=== PATIENT | male | born 1975 | race Caucasian/White ===

== ENCOUNTER 2018-02-18 15:40 | Emergency (ER) | payer BC, OTHER ==
[2018-02-18] MEDS ORDERED: Ibuprofen TAB* 800 MG PO ONE (15:52)
--- NOTE | 2018-02-18 15:53 | ED ---
Lower Extremity - HPI Summary HPI Summary: 42-year-old male presents with right foot injury today. He states he dropped a min hammer on his right foot. There are small abrasions noted to right 2nd toe near nail. He believes his tetanus is up-to-date. He denies any numbness or tingling. He was able to ambulate on his foot. He denies any previous injury to the area. He states pain is 5 out of 10. Pain is worse with ambulation. pain is greatest over 1-2 metatarsal. He was not wearing steel toe boots. - History of Current Complaint Chief Complaint: EDExtremityLower Stated Complaint: RT FOOT INJURY Time Seen by Provider: 02/18/18 15:46 Pain Intensity: 4 - Allergies/Home Medications Allergies/Adverse Reactions: Allergies Allergy/AdvReac Type Severity Reaction Status Date / Time No Known Allergies Allergy Verified 02/18/18 15:43 PMH/Surg Hx/FS Hx/Imm Hx Endocrine/Hematology History: Denies: Hx Anticoagulant Therapy Cardiovascular History: Denies: Hx Myocardial Infarction Infectious Disease History: No Infectious Disease History: Denies: Traveled Outside the [place] in Last 30 Days - Family History Known Family History: Positive: Hypertension Review of Systems Negative: Fever Negative: Chest Pain Negative: Shortness Of Breath Positive: Myalgia - right foot injury All Other Systems Reviewed And Are Negative: Yes Physical Exam Triage Information Reviewed: Yes Vital Signs On Initial Exam: Initial Vitals Temp Pulse Resp BP Pulse Ox 99.5 F 66 16 124/80 96 02/18/18 15:43 02/18/18 15:43 02/18/18 15:43 02/18/18 15:43 02/18/18 15:43 Vital Signs Reviewed: Yes Appearance: Positive: Well-Appearing Skin: Positive: Warm, Dry Head/Face: Positive: Normal Head/Face Inspection Eyes: Positive: Normal, Conjunctiva Clear Respiratory/Lung Sounds: Positive: Clear to Auscultation, Breath Sounds Present Cardiovascular: Positive: Normal, RRR Musculoskeletal: Positive: Strength/ROM Intact - right foot, Other - abrasion to second toe, good pulses, capillary refill<2 secs, tenderness over 1-2 metatarsal Neurological: Positive: Normal Psychiatric: Positive: Normal Diagnostics - Vital Signs Vital Signs Temp Pulse Resp BP Pulse Ox 02/18/18 15:43 99.5 F 66 16 124/80 96 - Laboratory Lab Statement: Any lab studies that have been ordered have been reviewed, and results considered in the medical decision making process. - Radiology foot Xray Interpretation: No Acute Changes Radiology Interpretation Completed By: Radiologist Lower Extremity Course/Dx - Course Course Of Treatment: 42-year-old male presents with right foot injury today. He states he dropped a min hammer on his right foot. There are small abrasions noted to right 2nd toe near nail. He believes his tetanus is up-to- date. He denies any numbness or tingling. He was able to ambulate on his foot. He denies any previous injury to the area. He states pain is 5 out of 10. Pain is worse with ambulation. pain is greatest over 1-2 metatarsal. He was not wearing steel toe boots. on exam has abrasion to right 2nd toe, tenderness over 1-2nd metarsal. neurovascular intact. xray normal. cleaned abrasion and place band aide. will treat with RICE. patient understand and agrees with plan. - Diagnoses Differential Diagnosis/HQI/PQRI: Positive: Fracture (Closed), Sprain, Strain Provider Diagnoses: Contusion of right foot Discharge - Sign-Out/Discharge Documenting (check all that apply): Discharge/Admit/Transfer - Discharge Plan Condition: Good Disposition: HOME Patient Education Materials: Foot Contusion (ED) Referrals: Margarita Lantigua NP [Nurse Practitioner] - Additional Instructions: Take Tylenol or ibuprofen every 6 hours as needed for pain Apply ice, rest, elevate Follow up with primary care physician within 5 days Return to ED if develop any new or worsening symptoms - Billing Disposition and Condition Condition: GOOD Disposition: HOME
--- NOTE | 2018-02-18 16:16 | RAD ---
INDICATION: Right foot injury COMPARISON: None TECHNIQUE: AP, lateral, and oblique views were obtained. FINDINGS: The bony structures, joint spaces, and soft tissues are normal for age. IMPRESSION: NEGATIVE EXAMINATION.
[2018-02-18 17:00] VITALS: BP 121/66
== END 2018-02-18 16:57 | disposition home or self-care (01) ==
LOC: ED 15:40
DX: S90.31XA Contusion of right foot, initial encounter (principal); W22.8XXA Striking against or struck by other objects, initial encounter; Y92.9 Unspecified place or not applicable
CPT/HCPCS: 99281; A9270-GY

== ENCOUNTER 2018-04-30 14:39 | Emergency (ER) | payer OTHER ==
[2018-04-30 17:48] LABS: ABS Basophils 0 10^3/ul (0-0.2); ABS Eosinophils 0.1 10^3/ul (0-0.6); ABS Monocytes 0.5 10^3/ul (0-0.8); ABS Neutrophils 5.1 10^3/ul (1.5-7.7); ABS Nucleated RBC 0 10^3/ul; Eosinophil % 1.2 % (0-6); Hematocrit 45 % (42-52); Hemoglobin 15.9 g/dl (14.0-18.0); Lymphocyte % 15.6 % (25-47); Mean Corpuscular HGB Conc 36 g/dl (31-36); Mean Corpuscular Hemoglobin 32 pg (27-31); Mean Corpuscular Volume 89 fL (80-94); Mean Platelet Volume 7.3 um3 (7.4-10.4); Nucleated Red Blood Cells % 0; Platelet Count 180 10^3/ul (150-450); Red Blood Count 5.04 10^6/ul (4.00-5.40); Red Cell Distribution Width 14 % (10.5-15); White Blood Count 6.7 10^3/ul (3.5-10.8)
--- NOTE | 2018-04-30 17:51 | RAD ---
INDICATION: Chest pressure, hypertension. COMPARISON: Comparison is made with prior chest x-ray study from August 30, 2011. TECHNIQUE: Dual-energy PA and lateral views of the chest were obtained. FINDINGS: The heart is within normal limits in size. Mediastinal and hilar contours appear within normal limits. The lungs are clear. No pleural effusion is present. IMPRESSION: NO EVIDENCE FOR ACTIVE CARDIOPULMONARY DISEASE.
[2018-04-30 17:57] LABS: Urine Appearance Clear; Urine Blood Negative (Negative); Urine Color Straw; Urine Ketones Negative (Negative); Urine Protein Negative (Negative); Urine Specific Gravity 1.008 (1.010-1.030); Urine Urobilinogen Negative (Negative)
[2018-04-30 18:09] LABS: EGFR Non-African American 77.1 (>60)
[2018-04-30] MEDS ORDERED: Hydrochlorothiazide TAB* 25 MG PO ONE (18:12)
--- NOTE | 2018-04-30 18:16 | ED ---
Hypertension - HPI Summary HPI Summary: 42 male presents with high blood pressure for past week. He admits to occasional chest pain. He states it is sharp. It is located in one area on left side of chest. He states that it radiates into his left arm and neck. He denies any recent illness. No cough. He denies any shortness breath. He was occasional palpitations. He states that he has been having a lack of sleep. He states that he is on medications for anxiety and depression. He states that for the past week he's measuring blood pressure has been in the 140s. He is not on patient's for blood pressure. He denies any headache. He states that he feels that his blood pressure as high. He has family history of high blood pressure and cardiac disease. - History of Current Complaint Chief Complaint: EDHypertension Stated Complaint: HIGH BP Time Seen by Provider: 04/30/18 17:54 - Allergies/Home Medications Allergies/Adverse Reactions: Allergies Allergy/AdvReac Type Severity Reaction Status Date / Time No Known Allergies Allergy Verified 04/30/18 18:29 Home Medications: Home Medications Zolpidem TAB* [Ambien TAB*] 10 mg PO BEDTIME PRN 04/30/18 [History Confirmed ] traZODone TAB* [Desyrel TAB*] 50 mg PO BEDTIME PRN 04/30/18 [History Confirmed 04/30/18] PMH/Surg Hx/FS Hx/Imm Hx Endocrine/Hematology History: Denies: Hx Anticoagulant Therapy Cardiovascular History: Denies: Hx Myocardial Infarction Infectious Disease History: No Infectious Disease History: Denies: Traveled Outside the [place] in Last 30 Days - Family History Known Family History: Positive: Cardiac Disease, Hypertension - Social History Alcohol Use: Occasionally Substance Use Type: Reports: None Smoking Status (MU): Current Some Day Smoker Review of Systems Negative: Fever Positive: Palpitations, Chest Pain Negative: Shortness Of Breath, Cough All Other Systems Reviewed And Are Negative: Yes Physical Exam Triage Information Reviewed: Yes Vital Signs On Initial Exam: Initial Vitals Temp Pulse Resp BP Pulse Ox 98.1 F 62 16 160/97 98 04/30/18 14:47 04/30/18 14:47 04/30/18 14:47 04/30/18 14:47 04/30/18 14:47 Vital Signs Reviewed: Yes Appearance: Positive: Well-Appearing Skin: Positive: Warm, Dry Head/Face: Positive: Normal Head/Face Inspection Eyes: Positive: Normal, Conjunctiva Clear ENT: Positive: Pharynx normal Respiratory/Lung Sounds: Positive: Clear to Auscultation, Breath Sounds Present , Other - nonreproducible chest pain Cardiovascular: Positive: Normal, RRR Abdomen Description: Positive: Nontender, Soft Bowel Sounds: Positive: Present Musculoskeletal: Positive: Normal Neurological: Positive: Normal Psychiatric: Positive: Normal Diagnostics - Vital Signs Vital Signs Temp Pulse Resp BP Pulse Ox 04/30/18 16:34 99.1 F 60 16 139/88 99 04/30/18 14:47 98.1 F 62 16 160/97 98 - Laboratory Lab Results: Lab Results 04/30/18 04/30/18 04/30/18 Range/Units 17:13 17:34 17:34 WBC 6.7 (3.5-10.8) 10^3/ul RBC 5.04 (4.00-5.40) 10^6/ul Hgb 15.9 (14.0-18.0) g/dl Hct 45 (42-52) % MCV 89 (80-94) fL MCH 32 H (27-31) pg MCHC 36 (31-36) g/dl RDW 14 (10.5-15) % Plt Count 180 (150-450) 10^3/ul MPV 7.3 L (7.4-10.4) um3 Neut % (Auto) 76.1 (38-83) % Lymph % (Auto) 15.6 L (25-47) % [place] % (Auto) 6.8 (0-7) % Eos % (Auto) 1.2 (0-6) % Baso % (Auto) 0.3 (0-2) % Absolute Neuts (auto) 5.1 (1.5-7.7) 10^3/ul Absolute Lymphs (auto) 1.0 (1.0-4.8) 10^3/ul Absolute Monos (auto) 0.5 (0-0.8) 10^3/ul Absolute Eos (auto) 0.1 (0-0.6) 10^3/ul Absolute Basos (auto) 0 (0-0.2) 10^3/ul Absolute Nucleated RBC 0 10^3/ul Nucleated RBC % 0 Sodium 138 (135-145) mmol/L Potassium 3.9 (3.5-5.0) mmol/L Chloride 97 L (101-111) mmol/L Carbon Dioxide 35 H (22-32) mmol/L Anion Gap 6 (2-11) mmol/L BUN 14 (6-24) mg/dL Creatinine 1.05 (0.67-1.17) mg/dL Est GFR ( Amer) 93.3 (>60) Est GFR (Non-Af Amer) 77.1 (>60) BUN/Creatinine Ratio 13.3 (8-20) Glucose 210 H (70-100) mg/dL Lactic Acid (0.5-2.0) mmol/L Calcium 10.1 (8.6-10.3) mg/dL Total Bilirubin 0.40 (0.2-1.0) mg/dL AST 17 (13-39) U/L ALT 18 (7-52) U/L Alkaline Phosphatase 39 (34-104) U/L Troponin I 0.00 (<0.04) ng/mL Total Protein 7.4 (6.4-8.9) g/dL Albumin 4.8 (3.2-5.2) g/dL Globulin 2.6 (2-4) g/dL Albumin/Globulin Ratio 1.8 (1-3) Urine Color Straw Urine Appearance Clear Urine pH 6.0 (5-9) Ur Specific [place] 1.008 L (1.010-1.030) Urine Protein Negative (Negative) Urine Ketones Negative (Negative) Urine Blood Negative (Negative) Urine Nitrate Negative (Negative) Urine Bilirubin Negative (Negative) Urine Urobilinogen Negative (Negative) Ur Leukocyte Esterase Negative (Negative) Urine Glucose Negative (Negative) 04/30/18 Range/Units 17:34 WBC (3.5-10.8) 10^3/ul RBC (4.00-5.40) 10^6/ul Hgb (14.0-18.0) g/dl Hct (42-52) % MCV (80-94) fL MCH (27-31) pg MCHC (31-36) g/dl RDW (10.5-15) % Plt Count (150-450) 10^3/ul MPV (7.4-10.4) um3 Neut % (Auto) (38-83) % Lymph % (Auto) (25-47) % [place] % (Auto) (0-7) % Eos % (Auto) (0-6) % Baso % (Auto) (0-2) % Absolute Neuts (auto) (1.5-7.7) 10^3/ul Absolute Lymphs (auto) (1.0-4.8) 10^3/ul Absolute Monos (auto) (0-0.8) 10^3/ul Absolute Eos (auto) (0-0.6) 10^3/ul Absolute Basos (auto) (0-0.2) 10^3/ul Absolute Nucleated RBC 10^3/ul Nucleated RBC % Sodium (135-145) mmol/L Potassium (3.5-5.0) mmol/L Chloride (101-111) mmol/L Carbon Dioxide (22-32) mmol/L Anion Gap (2-11) mmol/L BUN (6-24) mg/dL Creatinine (0.67-1.17) mg/dL Est GFR ( Amer) (>60) Est GFR (Non-Af Amer) (>60) BUN/Creatinine Ratio (8-20) Glucose (70-100) mg/dL Lactic Acid 1.5 (0.5-2.0) mmol/L Calcium (8.6-10.3) mg/dL Total Bilirubin (0.2-1.0) mg/dL AST (13-39) U/L ALT (7-52) U/L Alkaline Phosphatase (34-104) U/L Troponin I (<0.04) ng/mL Total Protein (6.4-8.9) g/dL Albumin (3.2-5.2) g/dL Globulin (2-4) g/dL Albumin/Globulin Ratio (1-3) Urine Color Urine Appearance Urine pH (5-9) Ur Specific [place] (1.010-1.030) Urine Protein (Negative) Urine Ketones (Negative) Urine Blood (Negative) Urine Nitrate (Negative) Urine Bilirubin (Negative) Urine Urobilinogen (Negative) Ur Leukocyte Esterase (Negative) Urine Glucose (Negative) Result Diagrams: 04/30/18 17:34 04/30/18 17:34 Lab Statement: Any lab studies that have been ordered have been reviewed, and results considered in the medical decision making process. - Radiology chest Xray Interpretation: No Acute Changes Radiology Interpretation Completed By: Radiologist - EKG No standard instances Cardiac Rate: Bradycardia EKG Rhythm: Sinus Bradycardia EKG Interpretation: sinus bradycardia, early repolarization EKG Comparison: No Significant Change Hypertension Course/Dx - Course Course Of Treatment: 42 male presents with high blood pressure for past week. He admits to occasional chest pain. He states it is sharp. It is located in one area on left side of chest. He states that it radiates into his left arm and neck. He denies any recent illness. No cough. He denies any shortness breath. He was occasional palpitations. He states that he has been having a lack of sleep. He states that he is on medications for anxiety and depression. He states that for the past week he's measuring blood pressure has been in the 140s. He is not on patient's for blood pressure. He denies any headache. He states that he feels that his blood pressure as high. He has family history of high blood pressure and cardiac disease. On exam patient appears anxious. Lungs clear to auscultation. Heart regular rate and rhythm. Nontender chest wall. EKG sinus bradycardia. Chest x-ray normal. Labs within normal limits. serial troponins neg. bp has been consistently above 140. Will start hydrochlorothiazide. Patient understands agrees with plan. - Diagnoses Differential Diagnosis/HQI PQRI: Hypertension, Myocardial Infarction, Renal Disease Provider Diagnoses: Hypertension, Chest pain Discharge - Sign-Out/Discharge Documenting (check all that apply): Patient Departure - Discharge Plan Condition: Good Disposition: HOME Patient Education Materials: Hypertension (ED) Referrals: Saji Leiva MD [Primary Care Provider] - Additional Instructions: Take hydrochlorothiazide once a day follow-up with primary within 2 weeks keep blood pressure log and take blood pressure once a day Return to ED if develop any new or worsening symptoms - Billing Disposition and Condition Condition: GOOD Disposition: Home
[2018-04-30 20:52] VITALS: BP 131/87
== END 2018-04-30 21:01 | disposition home or self-care (01) ==
LOC: ED 14:39
DX: I10 Essential (primary) hypertension (principal); R07.9 Chest pain, unspecified; R00.1 Bradycardia, unspecified; F41.9 Anxiety disorder, unspecified; F32.9 Major depressive disorder, single episode, unspecified; F17.200 Nicotine dependence, unspecified, uncomplicated; Z79.899 Other long term (current) drug therapy; Z82.49 Family history of ischemic heart disease and other diseases of the circulatory system
CPT/HCPCS: 36415; 71046; 80053; 81003; 83605; 84484; 85025; 93005; 99282; A9270-GY

== ENCOUNTER 2020-11-15 08:35 | Inpatient (IN) ==
[2020-11-15 09:54] LABS: ABS Lymphocytes 0.4 10^3/ul (1.0-4.8); ABS Monocytes 0.5 10^3/ul (0-0.8); ABS Neutrophils 3.6 10^3/ul (1.5-7.7); Eosinophil % 0.1 %; Hematocrit 41 % (42-52); Hemoglobin 13.8 g/dL (14.0-18.0); Lymphocyte % 8.5 %; Mean Corpuscular HGB Conc 34 g/dL (31-36); Mean Corpuscular Hemoglobin 32 pg (27-31); Mean Corpuscular Volume 94 fL (80-94); Nucleated Red Blood Cells % 0.1; Platelet Count 180 10^3/uL (150-450); Red Blood Count 4.34 10^6 /uL (4.18-5.48); Red Cell Distribution Width 16 % (10-15); White Blood Count 4.5 10^3/uL (3.5-10.8)
[2020-11-15 10:10] LABS: ALT 36 U/L (7-52); AST 27 U/L (13-39); Albumin 4.3 g/dL (3.2-5.2); Albumin/Globulin Ratio 1.8 (1-3); Alkaline Phosphatase 41 U/L (34-104); Anion Gap 8 mmol/L (2-11); BUN/Creatinine Ratio 11.5 (8-20); Blood Urea Nitrogen 9 mg/dL (6-24); CO2 Carbon Dioxide 28 mmol/L (22-32); Calcium 9.5 mg/dL (8.6-10.3); Chloride 99 mmol/L (101-111); EGFR African American 129.7 (>60); EGFR Non-African American 107.2 (>60); Globulin 2.4 g/dL (2-4); Glucose 161 mg/dL (70-100); Potassium 3.8 mmol/L (3.5-5.0); Sodium 135 mmol/L (135-145); Total Protein 6.7 g/dL (6.4-8.9)
[2020-11-15 10:23] LABS: Urine Appearance Clear; Urine Bilirubin Negative (Negative); Urine Blood Negative (Negative); Urine Color Yellow; Urine Glucose Negative (Negative); Urine Ketones 1+ (Negative); Urine Nitrite Negative (Negative); Urine Protein Negative (Negative); Urine Specific Gravity 1.018 (1.010-1.030); Urine Urobilinogen Negative (Negative)
[2020-11-15 10:52] LABS: Urine Benzodiazepine Screen Presumptive Positive (None Detect); Urine Cannabinoids Screen None Detected (None Detect); Urine Opiates Screen None Detected (None Detect)
[2020-11-15 11:11] LABS: Acetaminophen < 15 mcg/mL; Alcohol, S < 10 mg/dL (<10); Salicylate < 2.50 mg/dL (<30)
[2020-11-15 11:25] LABS: TSH Ultra Thyroid Stim Horm 1.82 mcIU/mL (0.34-5.60)
[2020-11-15] MEDS ORDERED: Al Hydrox/Mg Hydrox/Simet LIQ 30 ML UDC PO PRN (13:17)
[2020-11-15] MEDS ORDERED: Cholecalciferol (VIT D3) 1,000 unit TAB PO SCH (15:00)
[2020-11-15] MEDS: Vitamin THERAPEUTIC TAB PO SCH (17:59)
[2020-11-16 07:58] LABS: HDL Cholesterol 44.9 mg/dL
[2020-11-16] MEDS: Cholecalciferol (VIT D3) 1,000 unit TAB PO SCH (08:18)
[2020-11-16] MEDS: Nicotine PATCH 21 MG/24 HR PATCH TRANSDERM PRN (08:19)
[2020-11-16] MEDS: Vitamin THERAPEUTIC TAB PO SCH (08:47)
[2020-11-16] MEDS: Nicotine GUM 2MG FRUIT FLAVOR PO PRN (17:53)
[2020-11-17] MEDS: Nicotine PATCH 21 MG/24 HR PATCH TRANSDERM PRN (07:17)
[2020-11-17] MEDS: Vitamin THERAPEUTIC TAB PO SCH (07:40)
[2020-11-17] MEDS: Cholecalciferol (VIT D3) 1,000 unit TAB PO SCH (07:40)
[2020-11-17] MEDS: Nicotine GUM 2MG FRUIT FLAVOR PO PRN (23:24)
[2020-11-18] MEDS: Cholecalciferol (VIT D3) 1,000 unit TAB PO SCH (07:15)
[2020-11-18] MEDS: Nicotine PATCH 21 MG/24 HR PATCH TRANSDERM PRN (07:16)
[2020-11-18] MEDS: Vitamin THERAPEUTIC TAB PO SCH (08:20)
[2020-11-18 10:13] VITALS: BP 149/95
== END 2020-11-18 13:52 | disposition home or self-care (01) | DRG 753 ==
LOC: ED 08:35 → BSU 15:33
PROVIDERS: ADMIT Psychiatry & Neurology Psychiatry; ATTEND Psychiatry & Neurology Psychiatry